=== PATIENT | female | born 1950 | race Caucasian/White ===

== ENCOUNTER 2018-02-25 11:29 | Emergency (ER) | payer MEDICARE, BC ==
--- NOTE | 2018-02-25 12:48 | EDM.PDOC ---
ED HPI GENERAL MEDICAL PROBLEM - General Chief Complaint: General Stated Complaint: ELEVATED BP, HEART RACING Time Seen by Provider: 02/25/18 12:30 Source of Information: Reports: Patient, Old Records, RN History Limitations: Reports: No Limitations - History of Present Illness INITIAL COMMENTS - FREE TEXT/NARRATIVE: 67 yo female went in to the clinic 1 month ago for a routine check up and her BP was noted to be elevated. At that time her lisinopril dose was 30 mg qd. Initially, they increased her lisinopril to 40 mg qd, but when that was not effective metoprolol 50 mg bid was added. She has not yet had a follow up appt since this addition was made. Today she noted some extra heart beats and became concerned so she and her came to the ER. 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 (see below) (none) Headache Pain Score (Numeric/FACES): 3 - Related Data Allergies Allergy/AdvReac Type Severity Reaction Status Date / Time cefaclor [Cefaclor] Allergy Cannot Verified 02/25/18 11:56 Remember levofloxacin [From Levaquin] Allergy Cannot Verified 02/25/18 11:56 Remember sulfadiazine [Sulfadiazine] Allergy Cannot Verified 02/25/18 11:56 Remember Home Meds: Home Meds Aspirin 325 tab PO DAILY 12/13/13 [History] Lisinopril 20 mg PO BID 12/13/13 [History] Metoprolol 50 mg PO DAILY 12/13/13 [History] Neurontin 300 mg PO ASDIRECTED 12/13/13 [History] Vit D3 1,000 units PO BEDTIME 12/13/13 [History] Past Medical History HEENT History: Reports: Impaired Vision Cardiovascular History: Reports: High Cholesterol, Hypertension 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: Neurological History: Reports: CVA Dermatologic History: Reports: Psoriasis - Infectious Disease History Infectious Disease History: Reports: Chicken Pox, Measles, Mumps - Past Surgical History GI Surgical History: Reports: Colonoscopy Social & Family History - Tobacco Use Smoking Status *Q: Former Smoker Years of Tobacco use: 40 Packs/Tins Daily: 0.5 Used Tobacco, but Quit: Yes Month/Year Tobacco Last Used: 2012 Second Hand Smoke Exposure: No - Caffeine Use Caffeine Use: Reports: Coffee - Alcohol Use Days Per Week of Alcohol Use: 7 Number of Drinks Per Day: 2 Total Drinks Per Week: 14 Date of Last Drink: 02/24/18 Time of Last Drink: 20:00 - Recreational Drug Use Recreational Drug Use: No ED ROS GENERAL - Review of Systems Review Of Systems: See Below Constitutional: Reports: No Symptoms HEENT: Reports: No Symptoms Respiratory: Reports: No Symptoms Cardiovascular: Reports: Palpitations GI/Abdominal: Reports: No Symptoms : Reports: No Symptoms Musculoskeletal: Reports: No Symptoms Skin: Reports: No Symptoms Neurological: Reports: No Symptoms ED EXAM, GENERAL - Physical Exam Exam: See Below Exam Limited By: No Limitations General Appearance: Alert, WD/WN, No Apparent Distress, Anxious Eye Exam: Bilateral Eye: Normal Inspection Ears: Normal External Exam, Normal Canal, Hearing Grossly Normal, Normal TMs Ear Exam: Bilateral Ear: Auricle Normal, Canal Normal, TM normal Nose: Normal Inspection, Normal Mucosa, No Blood Throat/Mouth: Normal Inspection, Normal Lips, Normal Oropharynx, Normal Voice, No Airway Compromise Head: Atraumatic, Normocephalic Neck: Normal Inspection, Supple Respiratory/Chest: No Respiratory Distress, Lungs Clear, Normal Breath Sounds, No Accessory Muscle Use Cardiovascular: Regular Rate, Rhythm GI/Abdominal: Normal Bowel Sounds, Soft, Non-Tender, No Distention Back Exam: Normal Inspection. No: CVA Tenderness (R), CVA Tenderness (L) Extremities: Normal Inspection, Normal Range of Motion, Non-Tender, No Pedal Edema Neurological: Alert, Oriented, CN II-XII Intact, Normal Cognition, No Motor/ Sensory Deficits Psychiatric: Normal Affect, Normal Mood Skin Exam: Warm, Dry, Intact, Normal Color, No Rash Course - Vital Signs Last Recorded V/S: Last Vital Signs Temp 35.5 C 02/25/18 12:09 Pulse 73 02/25/18 12:09 Resp 16 02/25/18 12:09 BP 150/77 H 02/25/18 12:09 Pulse Ox 93 L 02/25/18 12:09 - Orders/Labs/Meds Orders: Active Orders 24 hr Category Date Time Status Cardiac Monitoring [RC] .As Directed Care 02/25/18 12:21 Active Labs: Laboratory Tests 02/25/18 02/25/18 Range/Units 12:29 12:30 Sodium 139 L (140-148) mmol/L Potassium 4.1 (3.6-5.2) mmol/L Chloride 105 (100-108) mmol/L Carbon Dioxide 21 (21-32) mmol/L Anion Gap 17.1 H (5.0-14.0) mmol/L BUN 16 (7-18) mg/dL Creatinine 0.9 (0.6-1.0) mg/dL Est Cr Clr Drug Dosing 56.08 mL/min Estimated GFR (MDRD) > 60 (>60) Glucose 110 H (74-106) mg/dL Calcium 9.4 (8.5-10.1) mg/dL Troponin I < 0.017 (0.000-0.056) ng/mL Departure - Departure Time of Disposition: 13:05 Disposition: Home, Self-Care 01 Condition: Fair Clinical Impression: HTN, goal below 130/80, Unifocal PVCs - Discharge Information Referrals: Caitlin Nolan PA [Primary Care Provider] - Forms: ED Department Discharge - My Orders Last 24 Hours: My Active Orders 02/25/18 12:21 Cardiac Monitoring [RC] .As Directed - Assessment/Plan Last 24 Hours: My Active Orders 02/25/18 12:21 Cardiac Monitoring [RC] .As Directed
== END 2018-02-25 13:23 | disposition home or self-care (01) ==
LOC: JP.ED 11:29
DX: I10 Essential (primary) hypertension (principal); I49.3 Ventricular premature depolarization; E78.00 Pure hypercholesterolemia, unspecified; Z88.8 Allergy status to other drugs, medicaments and biological substances; Z88.2 Allergy status to sulfonamides; Z79.82 Long term (current) use of aspirin; Z79.899 Other long term (current) drug therapy; Z86.73 Personal history of transient ischemic attack (TIA), and cerebral infarction without residual deficits; Z87.891 Personal history of nicotine dependence
CPT/HCPCS: 36415; 80048; 84484; 99283

== ENCOUNTER 2018-05-31 13:10 | Emergency (ER) | payer MEDICARE, BC ==
[2018-05-31] MEDS ORDERED: Sodium Chloride 0.9% 10 ML Syringe FLUSH PRN (14:22)
--- NOTE | 2018-05-31 14:27 | EDM.PDOC ---
ED HPI GENERAL MEDICAL PROBLEM - General Chief Complaint: Neuro Symptoms/Deficits Stated Complaint: CONFUSION,HEADACHE,TROUBLES SEEING Time Seen by Provider: 05/31/18 14:10 Source of Information: Reports: Patient, Old Records, RN History Limitations: Reports: No Limitations - History of Present Illness INITIAL COMMENTS - FREE TEXT/NARRATIVE: 67 yo female here with some mild confusion. Unable to comprehend the written word, was listening to a game show on TV and was not able to understand what was being asked. Called an egg ham when making lunch today at about 11:30am which was the first thing that truly concerned her . Before this she had some visual issues (blurring) and a mild CARRANZA that eventually went away with a single acetaminophen tablet. Had a CVA in '13. BP running a bit high for her. Anterior Headache Pain Score (Numeric/FACES): 2 - Related Data Allergies Allergy/AdvReac Type Severity Reaction Status Date / Time cefaclor [Cefaclor] Allergy Cannot Verified 02/25/18 11:56 Remember levofloxacin [From Levaquin] Allergy Cannot Verified 05/31/18 13:46 Remember naproxen Allergy Itching Verified 05/31/18 13:46 sulfadiazine [Sulfadiazine] Allergy Cannot Verified 05/31/18 13:46 Remember Home Meds: Home Meds Aspirin 325 tab PO DAILY 12/13/13 [History] Lisinopril 20 mg PO BID 12/13/13 [History] Metoprolol 100 mg PO DAILY 12/13/13 [History] Vit D3 1,000 units PO BEDTIME 12/13/13 [History] Celecoxib [CeleBREX] 100 mg PO BID 05/31/18 [History] atorvaSTATin [Lipitor] 20 mg PO BEDTIME 05/31/18 [History] Past Medical History HEENT History: Reports: Impaired Vision Cardiovascular History: Reports: High Cholesterol, Hypertension Respiratory History: Reports: None Genitourinary History: Reports: None 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: Musculoskeletal History: Reports: Arthritis Neurological History: Reports: CVA, Migraines Psychiatric History: Reports: None Endocrine/Metabolic History: Reports: None Hematologic History: Reports: None Immunologic History: Reports: None Oncologic (Cancer) History: Reports: None Dermatologic History: Reports: None, Psoriasis - Infectious Disease History Infectious Disease History: Reports: Chicken Pox, Measles - Past Surgical History Head Surgeries/Procedures: Reports: None Cardiovascular Surgical History: Reports: None GI Surgical History: Reports: Colonoscopy Neurological Surgical History: Reports: None Musculoskeletal Surgical History: Reports: None Social & Family History - Tobacco Use Smoking Status *Q: Never Smoker Second Hand Smoke Exposure: No - Caffeine Use Caffeine Use: Reports: Coffee - Alcohol Use Days Per Week of Alcohol Use: 5 Number of Drinks Per Day: 5 Total Drinks Per Week: 25 Date of Last Drink: 05/30/18 Time of Last Drink: 17:00 - Recreational Drug Use Recreational Drug Use: No ED ROS GENERAL - Review of Systems Review Of Systems: See Below Constitutional: Reports: No Symptoms HEENT: Reports: Other (transient blurred vision) Respiratory: Reports: No Symptoms Cardiovascular: Reports: No Symptoms Endocrine: Reports: No Symptoms GI/Abdominal: Reports: No Symptoms : Reports: No Symptoms Musculoskeletal: Reports: No Symptoms Skin: Reports: No Symptoms Neurological: Reports: Dizziness (mild), Other (difficult to interpret written words. Words mixed up.) ED EXAM, NEURO - Physical Exam Exam: See Below Exam Limited By: No Limitations General Appearance: Alert, WD/WN, No Apparent Distress Eye Exam: Bilateral Eye: EOMI, Normal Inspection, PERRL Ears: Normal External Exam, Normal Canal, Hearing Grossly Normal, Normal TMs Nose: Normal Inspection, Normal Mucosa, No Blood Throat/Mouth: Normal Inspection, Normal Lips, Normal Oropharynx, Normal Voice, No Airway Compromise Head Exam: Atraumatic, Normocephalic Neck: Normal Inspection, Supple Respiratory/Chest: No Respiratory Distress, Lungs Clear, Normal Breath Sounds, No Accessory Muscle Use Cardiovascular: Regular Rate, Rhythm, No Edema GI/Abdominal: Normal Bowel Sounds, Soft, Non-Tender, No Distention Neurological: Alert, Normal Mood/Affect, CN II-XII Intact, Oriented x 3, Other ( R visual field deficit, unable to read effectively, mild word mix up) Back Exam: Normal Inspection Extremities: Normal Inspection, Normal Range of Motion, Non-Tender, No Pedal Edema Psychiatric: Normal Affect, Normal Mood Skin Exam: Warm, Dry, Intact, Normal Color, No Rash Course - Vital Signs Text/Narrative:: Stroke neurologist, Dr. Denny called @ [phone]. Last Recorded V/S: Last Vital Signs Temp 36.8 C 05/31/18 13:37 Pulse 64 07/02/18 14:08 Resp 16 05/31/18 14:08 BP 175/93 H 05/31/18 14:08 Pulse Ox 94 L 05/31/18 14:08 - Orders/Labs/Meds Orders: Active Orders 24 hr Category Date Time Status Cardiac Monitoring [RC] .As Directed Care 05/31/18 14:22 Active Clopidogrel [Plavix] Med 05/31/18 15:52 Once 300 mg PO ONETIME ONE Sodium Chloride 0.9% [Saline Flush] Med 05/31/18 14:22 Active 10 ml FLUSH ASDIRECTED PRN Saline Lock Insert [OM.PC] Routine Oth 05/31/18 14:22 Ordered Medication Orders Clopidogrel Bisulfate (Plavix) 300 mg PO ONETIME ONE Stop: 05/31/18 15:53 Sodium Chloride (Saline Flush) 10 ml FLUSH ASDIRECTED PRN PRN Reason: Keep Vein Open Labs: Laboratory Tests 05/31/18 05/31/18 Range/Units 14:34 14:34 WBC 7.0 (4.5-11.0) K/uL RBC 4.85 (3.30-5.50) M/uL Hgb 14.5 (12.0-15.0) g/dL Hct 43.6 (36.0-48.0) % MCV 90 (80-98) fL MCH 30 (27-31) pg MCHC 33 (32-36) % Plt Count 257 (150-400) K/uL Sodium 140 (140-148) mmol/L Potassium 3.9 (3.6-5.2) mmol/L Chloride 104 (100-108) mmol/L Carbon Dioxide 28 (21-32) mmol/L Anion Gap 8.0 (5.0-14.0) mmol/L BUN 14 (7-18) mg/dL Creatinine 1.0 (0.6-1.0) mg/dL Est Cr Clr Drug Dosing 50.47 mL/min Estimated GFR (MDRD) 56 L (>60) Glucose 111 H (74-106) mg/dL Calcium 9.1 (8.5-10.1) mg/dL Troponin I < 0.017 (0.000-0.056) ng/mL Meds: Medications Generic Name Dose Route Start Last Admin Trade Name Freq PRN Reason Stop Dose Admin Clopidogrel Bisulfate 300 mg 05/31/18 15:52 Plavix PO 05/31/18 15:53 ONETIME ONE Sodium Chloride 10 ml 05/31/18 14:22 Saline Flush FLUSH ASDIRECTED PRN Keep Vein Open Departure - Departure Time of Disposition: 16:20 Disposition: DC/Tfer to Acute Hospital 02 Condition: Fair Clinical Impression: Neurological deficit present - Discharge Information Referrals: Caitlin Nolan PA [Primary Care Provider] - Forms: ED Department Discharge - My Orders Last 24 Hours: My Active Orders 05/31/18 14:22 Cardiac Monitoring [RC] .As Directed Sodium Chloride 0.9% [Saline Flush] 10 ml FLUSH ASDIRECTED PRN Saline Lock Insert [OM.PC] Routine 05/31/18 15:52 Clopidogrel [Plavix] 300 mg PO ONETIME ONE - Assessment/Plan Last 24 Hours: My Active Orders 05/31/18 14:22 Cardiac Monitoring [RC] .As Directed Sodium Chloride 0.9% [Saline Flush] 10 ml FLUSH ASDIRECTED PRN Saline Lock Insert [OM.PC] Routine 05/31/18 15:52 Clopidogrel [Plavix] 300 mg PO ONETIME ONE
--- NOTE | 2018-05-31 14:50 | CT ---
Head wo Cont INDICATION: TIA vs CVA TECHNIQUE: CT images of the head obtained without IV contrast. Dosage reduction and iterative reconstruction techniques employed. COMPARISON: None FINDINGS: No acute intracranial abnormality. No hemorrhage, edema or mass effect. No signs of acute transcortical infarct. Old small lacunar infarcts in the basal ganglia bilaterally again noted. Seamer El[employer] Band leobardo small vessel ischemic disease. The ventricles are normal size. Skull intact. Visualized paranas al sinuses clear. IMPRESSION:Nothing acute. Chronic ischemic changes.
[2018-05-31] MEDS ORDERED: Clopidogrel 75 MG Tab PO ONE (15:52)
== END 2018-05-31 16:45 ==
LOC: JP.ED 13:10
DX: R29.818 Other symptoms and signs involving the nervous system (principal); I10 Essential (primary) hypertension; E78.00 Pure hypercholesterolemia, unspecified; Z79.82 Long term (current) use of aspirin; Z79.899 Other long term (current) drug therapy; Z88.1 Allergy status to other antibiotic agents; Z88.2 Allergy status to sulfonamides; Z88.8 Allergy status to other drugs, medicaments and biological substances
CPT/HCPCS: 36415; 70450; 80048; 84484; 85027; 99285; A9270

== ENCOUNTER 2020-10-03 11:39 | Emergency (ER) | payer MEDICARE ==
[2020-10-03] MEDS ORDERED: Labetalol 20 MG/4 ML Syringe IVPUSH ONE (12:02)
--- NOTE | 2020-10-03 13:11 | EDM.PDOC ---
ED HPI GENERAL MEDICAL PROBLEM - General Chief Complaint: Cardiovascular Problem Stated Complaint: DIZZY MAYBE HIGH BLOOD PRESSURE? Time Seen by Provider: 10/03/20 11:50 Source of Information: Reports: Patient, Family History Limitations: Reports: No Limitations - History of Present Illness INITIAL COMMENTS - FREE TEXT/NARRATIVE: 70-year-old female arrives with very high blood pressure, confusion, inability to concentrate or read and dizziness. This has happened in the past when her blood pressure has been elevated. She has no chest pain or shortness of breath. No peripheral edema, no headache. No palpitations. She arrived with a blood pressure of 231/119. Onset: Unknown/Unsure (Symptoms started within the last 2 hours) Associated Symptoms: Reports: Confusion, Other (Dizziness). 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: Reports: Other (see below) (Patient did take her regular morning medications including metoprolol and lisinopril) - Related Data Allergies Allergy/AdvReac Type Severity Reaction Status Date / Time cefaclor [Cefaclor] Allergy Cannot Verified 02/25/18 11:56 Remember levofloxacin [From Levaquin] Allergy Cannot Verified 05/31/18 13:46 Remember naproxen Allergy Itching Verified 05/31/18 13:46 sulfadiazine [Sulfadiazine] Allergy Cannot Verified 05/31/18 13:46 Remember Home Meds: Home Meds Aspirin 325 tab PO DAILY 12/13/13 [History] Lisinopril 20 mg PO BID 12/13/13 [History] Metoprolol 100 mg PO DAILY 12/13/13 [History] Vit D3 1,000 units PO BEDTIME 12/13/13 [History] Celecoxib [CeleBREX] 100 mg PO BID 05/31/18 [History] atorvaSTATin [Lipitor] 20 mg PO BEDTIME 05/31/18 [History] amLODIPine [Norvasc] 5 mg PO DAILY #30 tab 10/03/20 [Rx] Past Medical History HEENT History: Reports: Impaired Vision Cardiovascular History: Reports: High Cholesterol, Hypertension Respiratory History: Reports: Pneumonia, Recurrent Gastrointestinal History: Reports: None Genitourinary History: Reports: None 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: Musculoskeletal History: Reports: Arthritis Neurological History: Reports: CVA, Migraines Psychiatric History: Reports: None Endocrine/Metabolic History: Reports: None Hematologic History: Reports: None Immunologic History: Reports: None Oncologic (Cancer) History: Reports: None Dermatologic History: Reports: Psoriasis - Infectious Disease History Infectious Disease History: Reports: Chicken Pox, Measles - Past Surgical History Head Surgeries/Procedures: Reports: None HEENT Surgical History: Reports: None Cardiovascular Surgical History: Reports: None Respiratory Surgical History: Reports: None GI Surgical History: Reports: Colonoscopy Endocrine Surgical History: Reports: None Neurological Surgical History: Reports: None Musculoskeletal Surgical History: Reports: None Dermatological Surgical History: Reports: None Social & Family History - Tobacco Use Tobacco Use Status *Q: Never Tobacco User Second Hand Smoke Exposure: No - Caffeine Use Caffeine Use: Reports: Coffee - Alcohol Use Days Per Week of Alcohol Use: 7 Number of Drinks Per Day: 3 Total Drinks Per Week: 21 - Recreational Drug Use Recreational Drug Use: No ED ROS GENERAL - Review of Systems Review Of Systems: See Below Constitutional: Denies: Fever, Chills HEENT: Denies: Hearing Loss, Throat Pain, Vision Change Respiratory: Denies: Shortness of Breath Cardiovascular: Denies: Chest Pain GI/Abdominal: Denies: Abdominal Pain, Nausea, Vomiting Neurological: Reports: Confusion, Dizziness, Other (Difficulty concentrating and slight expressive aphasia) Psychiatric: Reports: No Symptoms ED EXAM, GENERAL - Physical Exam Exam: See Below Exam Limited By: No Limitations General Appearance: Alert, No Apparent Distress Eye Exam: Bilateral Eye: EOMI, PERRL Head: Atraumatic Neck: No: Carotid Bruit Respiratory/Chest: No Respiratory Distress, Lungs Clear Cardiovascular: Regular Rate, Rhythm Extremities: Normal Inspection Neurological: Alert, Oriented, Confused (Patient has mild confusion and having difficulty reading and repeating words) Psychiatric: Normal Affect, Normal Mood Skin Exam: Warm, Dry Course - Vital Signs Last Recorded V/S: Last Vital Signs Temp 97.9 F 10/03/20 11:53 Pulse 80 10/03/20 13:11 Resp 20 10/03/20 13:11 BP 178/89 H 10/03/20 14:07 Pulse Ox 93 L 10/03/20 13:11 - Orders/Labs/Meds Labs: Laboratory Tests 10/03/20 10/03/20 Range/Units 12:20 12:24 WBC 7.7 (4.5-11.0) K/uL RBC 4.27 (3.30-5.50) M/uL Hgb 13.1 (12.0-15.0) g/dL Hct 39.9 (36.0-48.0) % MCV 93 (80-98) fL MCH 31 (27-31) pg MCHC 33 (32-36) % Plt Count 256 (150-400) K/uL Neut % (Auto) 61 (36-66) % Lymph % (Auto) 28 (24-44) % [place] % (Auto) 8 H (2-6) % Eos % (Auto) 2 (2-4) % Baso % (Auto) 0 (0-1) % Sodium 137 L (140-148) mmol/L Potassium 4.4 (3.6-5.2) mmol/L Chloride 102 (100-108) mmol/L Carbon Dioxide 26 (21-32) mmol/L Anion Gap 13.4 (5.0-14.0) mmol/L BUN 17 (7-18) mg/dL Creatinine 1.2 H (0.6-1.0) mg/dL Est Cr Clr Drug Dosing 40.38 mL/min Estimated GFR (MDRD) 45 L (>60) Glucose 108 H (74-106) mg/dL Calcium 9.8 (8.5-10.1) mg/dL Total Bilirubin 0.4 (0.2-1.0) mg/dL AST 16 (15-37) U/L ALT 29 (12-78) U/L Alkaline Phosphatase 83 (46-116) U/L Total Protein 6.8 (6.4-8.2) g/dL Albumin 3.7 (3.4-5.0) g/dL Globulin 3.1 (2.3-3.5) g/dL Albumin/Globulin Ratio 1.2 (1.2-2.2) Meds: Medications Discontinued Medications Generic Name Dose Route Start Last Admin Trade Name Freq PRN Reason Stop Dose Admin Amlodipine Besylate 5 mg 10/03/20 14:02 10/03/20 14:07 Norvasc PO 10/03/20 14:03 5 mg ONETIME ONE Administration Labetalol HCl 10 mg 10/03/20 12:02 10/03/20 12:09 Normodyne IVPUSH 10/03/20 12:03 10 mg NOW ONE Administration Protocol - Re-Assessments/Exams Free Text/Narrative Re-Assessment/Exam: 10/03/20 15:22 Past records were reviewed and IV was started. Patient was given 10 mg of IV labetalol and cardiac monitored. Past records shows that she over the last 3 or 4 years has had several episodes of isolated hypertension with palpitations or dizziness. 10/03/20 16:46 Blood pressure improved slightly after the labetalol to a low of 170/90. Her symptoms resolved. Discussed this with nephrology, the recommendation was for the patient to start 5 mg daily of amlodipine and stop her regular Celebrex. Her first dose of amlodipine was given here in the emergency room and she was given 1 month supply. She will recheck her blood pressure next week with her primary provider, or return sooner if symptoms despite change in treatment. Nephrology was fairly convinced that her chronic NSAID use was causing blood pressure fluctuations and slowly reducing her kidney function. Creatinine 1.2, GFR 45, both of these are slightly worse than 6 months ago. The remaining labs were reassuring or normal. 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 Stop Celebrex and use acetaminophen instead. Avoid extra salt intake. Increase activity as tolerated and return anytime if worsening or concerns. Recheck next week with your regular provider for a blood pressure recheck. Sepsis Event Note (ED) - Evaluation Sepsis Screening Result: No Definite Risk - Focused Exam Vital Signs: Vital Signs Temp Pulse Resp BP BP Pulse Ox 10/03/20 14:07 178/89 H 10/03/20 13:11 80 20 180/90 H 93 L 10/03/20 13:04 77 18 195/92 H 94 L 10/03/20 12:23 81 16 199/95 H 94 L 10/03/20 12:03 85 21 H 218/114 H 93 L 10/03/20 11:53 97.9 F 85 20 231/119 H 95 10/03/20 11:46 97.9 F 85 20 231/119 H 95
[2020-10-03] MEDS ORDERED: amLODIPine 5 MG Tab PO ONE (14:02)
== END 2020-10-03 14:16 | disposition home or self-care (01) ==
LOC: JP.ED 11:39
DX: I12.9 Hypertensive chronic kidney disease with stage 1 through stage 4 chronic kidney disease, or unspecified chronic kidney disease (principal); N18.9 Chronic kidney disease, unspecified; M19.90 Unspecified osteoarthritis, unspecified site; E78.00 Pure hypercholesterolemia, unspecified; Z79.82 Long term (current) use of aspirin; Z79.899 Other long term (current) drug therapy; Z86.73 Personal history of transient ischemic attack (TIA), and cerebral infarction without residual deficits; Z88.1 Allergy status to other antibiotic agents; Z88.2 Allergy status to sulfonamides
CPT/HCPCS: 36415; 80053; 85025; 96374; 99284-25; A9270-GY; J3490

== ENCOUNTER 2021-03-09 11:33 | Emergency (ER) | payer MEDICARE ==
[2021-03-09] MEDS ORDERED: Cyclobenzaprine 10 MG Tab PO ONE (12:16)
[2021-03-09] MEDS ORDERED: Ketorolac 60 MG/2 ML SDV IM ONE (12:16)
--- NOTE | 2021-03-09 12:19 | EDM.PDOC ---
ED HPI GENERAL MEDICAL PROBLEM - General Chief Complaint: Neck Problem Stated Complaint: NECK PAIN AFTER THROWING OUT HER BACK Time Seen by Provider: 03/09/21 12:12 Source of Information: Reports: Patient, Family, RN Notes Reviewed History Limitations: Reports: No Limitations - History of Present Illness INITIAL COMMENTS - FREE TEXT/NARRATIVE: 70-year-old female presents emergency department day complaint of neck pain, she states she did go to the chiropractor had what she describes as a deep tissue massage however the next day woke up extremely stiff she has not really tried anything more than an aspirin for pain relief she also states it is hard for her to swallow no difficulty breathing no fever Neck Pain Score (Numeric/FACES): 10 - Related Data Allergies Allergy/AdvReac Type Severity Reaction Status Date / Time cefaclor [Cefaclor] Allergy Cannot Verified 03/09/21 11:47 Remember levofloxacin [From Levaquin] Allergy Cannot Verified 03/09/21 11:47 Remember naproxen Allergy Itching Verified 03/09/21 11:47 sulfadiazine [Sulfadiazine] Allergy Cannot Verified 03/09/21 11:47 Remember Home Meds: Home Meds Aspirin 325 tab PO DAILY 12/13/13 [History] Lisinopril 20 mg PO BID 12/13/13 [History] Metoprolol 100 mg PO DAILY 12/13/13 [History] Vit D3 1,000 units PO BEDTIME 12/13/13 [History] Celecoxib [CeleBREX] 100 mg PO BID 05/31/18 [History] atorvaSTATin [Lipitor] 20 mg PO BEDTIME 05/31/18 [History] amLODIPine [Norvasc] 5 mg PO DAILY #30 tab 10/03/20 [Rx] Cyclobenzaprine [Flexeril] 10 mg PO TID PRN #20 tab 03/09/21 [Rx] Past Medical History HEENT History: Reports: Impaired Vision Cardiovascular History: Reports: High Cholesterol, Hypertension Respiratory History: Reports: Pneumonia, Recurrent DELIVERY PERSON History: Reports: Musculoskeletal History: Reports: Arthritis Neurological History: Reports: CVA, Migraines Psychiatric History: Reports: None Endocrine/Metabolic History: Reports: None Hematologic History: Reports: None Immunologic History: Reports: None Oncologic (Cancer) History: Reports: None Dermatologic History: Reports: Psoriasis - Infectious Disease History Infectious Disease History: Reports: Chicken Pox, Measles - Past Surgical History Head Surgeries/Procedures: Reports: None HEENT Surgical History: Reports: None Cardiovascular Surgical History: Reports: None Respiratory Surgical History: Reports: None GI Surgical History: Reports: Colonoscopy Endocrine Surgical History: Reports: None Neurological Surgical History: Reports: None Musculoskeletal Surgical History: Reports: None Dermatological Surgical History: Reports: None Social & Family History - Tobacco Use Tobacco Use Status *Q: Former Tobacco User Years of Tobacco use: 30 Packs/Tins Daily: 1 Used Tobacco, but Quit: Yes Month/Year Tobacco Last Used: 30 years ago - Caffeine Use Caffeine Use: Reports: Coffee Other Caffeine Use: 2-3 coffee per day - Alcohol Use Days Per Week of Alcohol Use: 7 Number of Drinks Per Day: 3 Total Drinks Per Week: 21 - Recreational Drug Use Recreational Drug Use: No ED ROS GENERAL - Review of Systems Review Of Systems: See Below Constitutional: Reports: No Symptoms Musculoskeletal: Reports: Neck Pain ED EXAM, UPPER BACK/NECK PAIN - Physical Exam Exam: See Below Text/Narrative:: Examination of the neck she is tenderness paraspinally in the neck and rhomboids bilaterally there is no spinal tenderness Exam Limited By: No Limitations General Appearance: Alert, WD/WN, No Apparent Distress Throat/Mouth Exam: Normal Inspection, Normal Lips, Normal Teeth, Normal Gums, Normal Oropharynx, Normal Voice, No Airway Compromise Course - Vital Signs Last Recorded V/S: Last Vital Signs Temp 98.0 F 03/09/21 11:51 Pulse 94 03/09/21 11:51 Resp 16 03/09/21 11:51 BP 180/87 H 03/09/21 11:51 Pulse Ox 94 L 03/09/21 11:51 - Orders/Labs/Meds Meds: Medications Discontinued Medications Generic Name Dose Route Start Last Admin Trade Name Freq PRN Reason Stop Dose Admin Acetaminophen 650 mg 03/09/21 13:30 03/09/21 13:38 Acetaminophen 325 Mg Tab PO 03/09/21 13:31 650 mg NOW ONE Administration Cyclobenzaprine HCl 10 mg 03/09/21 12:16 03/09/21 12:43 Cyclobenzaprine 10 Mg Tab PO 03/09/21 12:17 10 mg ONETIME ONE Administration Ketorolac Tromethamine 60 mg 03/09/21 12:16 03/09/21 12:43 Ketorolac 60 Mg/2 Ml Sdv IM 03/09/21 12:17 60 mg ONETIME ONE Administration Departure - Departure Time of Disposition: 15:29 Disposition: Home, Self-Care 01 Condition: Fair Clinical Impression: Neck pain - Discharge Information Prescriptions: Cyclobenzaprine [Flexeril] 10 mg PO TID PRN #20 tab PRN Reason: Pain Referrals: Joel Garza MD [Primary Care Provider] - Forms: ED Department Discharge Additional Instructions: Continue to use ibuprofen as needed for pain control use Flexeril as needed for breakthrough pain, please followup with your primary care provider in 3-5 days if not better, please call return to the emergency department with worsening of symptoms. Sepsis Event Note (ED) - Evaluation Sepsis Screening Result: No Definite Risk - Focused Exam Vital Signs: Vital Signs Temp Pulse Resp BP Pulse Ox 03/09/21 11:51 98.0 F 94 16 180/87 H 94 L 03/09/21 11:46 98.0 F 94 16 180/87 H 94 L - Assessment/Plan Plan: Assessment Acuity = acute Site and laterality = neck pain Etiology = muscle skeletal Manifestations = none Location of injury = Home Lab values = none Plan Good improvement combination Toradol Flexeril prescription written for Flexeril 10 mg p.o. 3 times daily as needed total of 20 follow-up primary care 3 to 5 days if not better This note was dictated using [employer] voice recognition software please call with any questions on syntax or grammar.
[2021-03-09] MEDS ORDERED: Acetaminophen 325 MG Tab PO ONE (13:30)
== END 2021-03-09 15:57 | disposition home or self-care (01) ==
LOC: JP.ED 11:33
DX: M54.2 Cervicalgia (principal); E78.00 Pure hypercholesterolemia, unspecified; I10 Essential (primary) hypertension; M19.90 Unspecified osteoarthritis, unspecified site; Z79.82 Long term (current) use of aspirin; Z79.899 Other long term (current) drug therapy; Z87.891 Personal history of nicotine dependence; Z88.1 Allergy status to other antibiotic agents; Z88.8 Allergy status to other drugs, medicaments and biological substances; Z88.2 Allergy status to sulfonamides; Z86.73 Personal history of transient ischemic attack (TIA), and cerebral infarction without residual deficits
CPT/HCPCS: 96372; 99283; A9270; J1885

== ENCOUNTER → 2021-12-16 | Day surgery (SDC) | payer MEDICARE ==
[~2021-12-16] MED LIST: Acetaminophen/oxyCODONE 325-5 MG Tab PO PRN; Bupivacaine 0.5% 30 ML SDV ONE; Clindamycin Phosphate 900 MG in Sodium Chloride 0.9% 100 ML IV ONE; Dexamethasone 4 MG/ML SDV ONE; Glycopyrrolate 0.2 MG/ML 5 ML MDV ONE; Lactated Ringers 1,000 ML IV SCH; Morphine 2 MG/ML SYRINGE IVPUSH ONE; Neostigmine Methylsulfate 1 MG/ML 5 ML Syringe ONE; Nozin Nasal Sanitizer NASBOTH ONE; Ondansetron 4 MG/2 ML SDV IVPUSH ONE; Ondansetron 4 MG/2 ML SDV ONE; Propofol 200 MG/20 ML SDV ONE; Rocuronium 50 MG/5 ML Vial ONE; Succinylcholine 200 MG/10 ML MDV ONE; fentaNYL 100 MCG/2 ML SDV ONE; fentaNYL 250 MCG/5 ML SDV ONE; hydrOXYzine HCl 25 MG Tab PO ONE
[2021-12-16 08:34] LABS: CORONAVIRUS COVID-19 NAA NEGATIVE (NEGATIVE)
== END ==
LOC: JP.SDS 07:38
PROVIDERS: ATTEND Specialist
DX: S82.832A Other fracture of upper and lower end of left fibula, initial encounter for closed fracture (principal); I12.9 Hypertensive chronic kidney disease with stage 1 through stage 4 chronic kidney disease, or unspecified chronic kidney disease; G47.33 Obstructive sleep apnea (adult) (pediatric); E78.00 Pure hypercholesterolemia, unspecified; G43.909 Migraine, unspecified, not intractable, without status migrainosus; I48.91 Unspecified atrial fibrillation; F17.200 Nicotine dependence, unspecified, uncomplicated; N18.9 Chronic kidney disease, unspecified; Z79.899 Other long term (current) drug therapy; Z88.2 Allergy status to sulfonamides; Z88.8 Allergy status to other drugs, medicaments and biological substances; Z98.890 Other specified postprocedural states; Z86.73 Personal history of transient ischemic attack (TIA), and cerebral infarction without residual deficits; Z01.812 Encounter for preprocedural laboratory examination; Z20.822 Contact with and (suspected) exposure to COVID-19
CPT/HCPCS: 0241U; 27792; 76000; A9270; C1713; C1776; J0330; J1100; J2270; J2405; J2704; J2710; J3010; J3490; J7120

== ENCOUNTER 2024-04-17 13:12 | Emergency (ER) | payer MEDICARE ==
[2024-04-17 14:47] LABS: BASOPHILS ABSOLUTE AUTO 0.03 K/uL (0.00-0.10); BASOPHILS PERCENT AUTO 0.3 % (0.1-1.3); EOSINOPHILS ABSOLUTE AUTO 0.11 K/uL (0.00-0.40); HEMATOCRIT 39.4 % (34.3-46.0); HEMOGLOBIN 13.4 g/dL (11.2-15.5); IMMATURE GRAN ABSOLUTE AUTO 0.04 K/uL (0.00-0.23); IMMATURE GRAN PERCENT AUTO 0.4 % (0.0-0.7); LYMPHOCYTES ABSOLUTE AUTO 1.78 K/uL (0.8-3.3); LYMPHOCYTES PERCENT AUTO 15.8 % (11.4-47.7); MEAN CORPUSCULAR HEMOGLOBIN 31.7 pg (31.6-35.5); MEAN CORPUSCULAR VOLUME 93.1 fL (81.4-99.0); MONOCYTES ABSOLUTE AUTO 1.33 K/uL (0.20-0.90); MONOCYTES PERCENT AUTO 11.8 % (3.3-12.6); NEUTROPHILS ABSOLUTE AUTO 7.99 K/uL (1.0-7.6); NEUTROPHILS PERCENT AUTO 70.7 % (40.0-78.1); PLATELET COUNT,PLT 281 K/uL (130-375); RED BLOOD CELL COUNT 4.23 M/uL (3.77-5.24); WHITE BLOOD CELL COUNT,WBC 11.3 K/uL (3.2-11.0)
[2024-04-17 15:05] LABS: BLOOD UREA NITROGEN,BUN 13 mg/dL (7-18); C-REACTIVE PROTEIN 5.85 mg/dL (<0.50); CARBON DIOXIDE,CO2 29 mmol/L (21-32); CHLORIDE,CL 99 mmol/L (100-108); CREATININE 0.9 mg/dL (0.6-1.0); ESTIMATED GFR 68 mL/min (>60); GLUCOSE RANDOM 113 mg/dL (74-106); SODIUM,NA 136 mmol/L (140-148)
== END 2024-04-17 16:32 | disposition home or self-care (01) ==
LOC: JP.ED 13:12
DX: M35.3 Polymyalgia rheumatica (principal); I10 Essential (primary) hypertension; Z88.1 Allergy status to other antibiotic agents; Z88.8 Allergy status to other drugs, medicaments and biological substances; Z88.2 Allergy status to sulfonamides; Z88.5 Allergy status to narcotic agent; Z79.01 Long term (current) use of anticoagulants; Z79.899 Other long term (current) drug therapy; Z86.73 Personal history of transient ischemic attack (TIA), and cerebral infarction without residual deficits; Z86.16 Personal history of COVID-19
CPT/HCPCS: 80048; 84550; 85025; 86140; 87468; 87469; 87484; 87798; 99283